=== PATIENT | female | born 1980 | race Hispanic/Latino ===

== ENCOUNTER 2018-04-02 00:58 | Emergency (ER) | payer SELFPAY ==
--- NOTE | 2018-04-02 01:17 | ED GENERAL ADULT ---
History of Present Illness General Chief Complaint: ETOH/Drug Related Complaint Stated Complaint: BIBA ETOH Source: patient Exam Limitations: confusion, intoxication Vital Signs & Intake/Output Vital Signs & Intake/Output Vital Signs Date Time Temp Pulse Resp B/P B/P Pulse O2 O2 Flow FiO2 Mean Ox Delivery Rate 04/02 0249 88 18 92/50 93 Room Air 04/02 0200 96 Room Air 04/02 0110 120 22 121/58 96 Room Air Allergies Coded Allergies: diphenhydramine (From BENADRYL) (Severe, "MY THROAT CLOSES" STATED WHILE INTOXICATED. 04/02/18) Triage Nurses Notes Reviewed? yes Onset: Abrupt Duration: unknown duration Timing: unknown HPI: 04/02/18 1:15 AM 37-year-old female presents to the emergency department by ambulance in 4-point restraints for alcohol intoxication and suspected drug use. According to neighbors the patient was on her porch unresponsive. EMS was called and the patient was combative and agitated. (Jose Tripathi DO) Past History Medical History Any Pertinent Medical History? see below for history Surgical History Surgical History: unobtainable Psychosocial History What is your primary language Yi Family History Hx Contributory? No (Jose Tripathi DO) Review of Systems Review of Systems Constitutional: Reports: no symptoms. EENTM: Reports: no symptoms. Respiratory: Reports: no symptoms. Cardiovascular: Reports: no symptoms. GI: Reports: no symptoms. Genitourinary: Reports: no symptoms. Musculoskeletal: Reports: no symptoms. Skin: Reports: no symptoms. Neurological/Psychological: Reports: other (INTOXICATED). Hematologic/Endocrine: Reports: no symptoms. Immunologic/Allergic: Reports: no symptoms. (Jose Tripathi DO) Physical Exam Physical Exam General Appearance: alert, awake, anxious, moderate distress Head: atraumatic, normal appearance Eyes: Bilateral: normal appearance, PERRL, EOMI. Ears, Nose, Throat: normal pharynx, normal ENT inspection Neck: normal inspection, supple Respiratory: normal breath sounds, chest non-tender, no respiratory distress Cardiovascular: regular rate/rhythm Peripheral Pulses: 4+ radial (R), 4+ radial (L) Gastrointestinal: soft, non-tender Back: normal range of motion Extremities: normal inspection, normal range of motion Neurologic/Psych: no motor/sensory deficits, awake, alert, oriented x 3 Skin: intact, normal color, warm/dry Core Measures ACS in differential dx? Yes CVA/TIA Diagnosis: No Sepsis Present: No Sepsis Focused Exam Completed? No (Jose Tripathi DO) Progress Differential Diagnoses I considered the following diagnoses in my evaluation of the patient: [Alcohol intoxication, substance abuse, psychosis] Plan of Care: Orders Procedure Date/time Status Heart Healthy Diet 04/02 B Active Restraint- Discontinue 04/02 230 Active Restraint- Behavioral ([facility]) 04/02 118 Active URINE DRUG SCREEN FOR ER ONLY 04/02 118 Active ETHANOL 04/02 118 Complete COMPREHENSIVE METABOLIC PANEL 04/02 118 Complete CBC WITHOUT DIFFERENTIAL 04/02 118 Complete Continuous Observation Monitor 04/02 100 Active Laboratory Tests 04/02/18 0216: Anion Gap 11, Estimated GFR > 60, BUN/Creatinine Ratio 8.3, Glucose 113 H, Calcium 7.4 L, Total Bilirubin 0.4, AST 43 H, ALT 42, Alkaline Phosphatase 56, Total Protein 6.3, Albumin 3.7, Globulin 2.6, Albumin/Globulin Ratio 1.4, CBC w Diff NO MAN DIFF REQ, RBC 3.51 L, MCV 100.2 H, MCH 35.1 H, MCHC 35.0, RDW 13.6, MPV 8.3, Gran % 40.7 L, Lymphocytes % 50.3, Monocytes % 5.9, Eosinophils % 2.6, Basophils % 0.5, Absolute Granulocytes 2.2, Absolute Lymphocytes 2.7, Absolute Monocytes 0.3, Absolute Eosinophils 0.1, Absolute Basophils 0, Serum Alcohol 263.0 Initial ED EKG: none Comments: 04/02/18 7 AM The patient was signed out to Dr. Finney at 7 AM. (Jose Tripathi DO) Departure Departure Condition: Stable Clinical Impression Primary Impression: Alcohol intoxication Referrals: Sangeeta Shaikh DO (PCP/Family) Departure Forms: Customer Survey General Discharge Information (Jose Tripathi DO) Departure Disposition: HOME OR SELF CARE Additional Instructions: Return if he would like help to stop drinking or for any other concerns. (Reg JOLLY,Frank Travis) Critical Care Note Critical Care Note Critical Care Time: 30-74 min (Jose Tripathi DO)
[2018-04-02 02:31] LABS: ABSOLUTE BASOPHIL COUNT 0 /CUMM (0.0-0.2); ABSOLUTE EOSINOPHIL COUNT 0.1 /CUMM (0.0-0.7); ABSOLUTE GRANULOCYTE CT 2.2 /CUMM (1.4-6.5); ABSOLUTE LYMPH COUNT 2.7 /CUMM (1.2-3.4); ABSOLUTE MONOCYTE COUNT 0.3 /CUMM (0.10-0.60); BASOPHIL % 0.5 % (0.0-2.0); EOSINOPHIL % 2.6 % (0-5); GRANULOCYTE % 40.7 % (42.2-75.2); HEMATOCRIT 35.2 % (37-47); MEAN CORPUSCULAR HGB 35.1 PG (27.0-31.0); MEAN CORPUSCULAR VOLUME 100.2 FL (81.0-99.0); MEAN PLATELET VOLUME 8.3 FL (7.4-10.4); PLATELET COUNT 226 /CUMM (130-400); RBC DISTRIBUTION WIDTH 13.6 % (11.5-14.5); RED BLOOD CELL CT 3.51 /CUMM (4.20-5.40); WHITE BLOOD CELL COUNT 5.4 /CUMM (4.8-10.8)
[2018-04-02 11:24] VITALS: BP 108/57
== END 2018-04-02 13:13 ==
LOC: ERH 00:58
PROVIDERS: Emergency Medicine
DX: F10.129 Alcohol abuse with intoxication, unspecified (principal)
CPT/HCPCS: 80307; 96372; G0480; J1200; J1630